=== PATIENT | male | born 1990 | race Two or more races ===

== ENCOUNTER 2018-08-03 18:15 | Emergency (ER) | payer OTHER ==
[~2018-08-03] VITALS: Ht 167.6 cm; Wt 115.7 kg
[2018-08-03 18:24] VITALS: BP 137/99
== END 2018-08-03 22:20 | disposition left against medical advice (07) ==
LOC: ER 18:34
DX: H57.13 Ocular pain, bilateral (principal); Z53.21 Procedure and treatment not carried out due to patient leaving prior to being seen by health care provider